=== PATIENT | female | born 1950 | race Native Hawaiian/Other Pacific Islander ===

== ENCOUNTER 2017-01-21 14:08 | Outpatient (CLI) | payer OTHER | END 2017-01-21 19:20 | disposition home or self-care (01) | LOC: LABW 14:08 | DX: M25.50 Pain in unspecified joint (principal); R63.5 Abnormal weight gain | CPT/HCPCS: 36415; 84436; 84439; 84443; 84550; 85651; 86039; 86200; 86430 ==

== ENCOUNTER 2017-05-25 14:42 | Outpatient (CLI) | payer OTHER ==
[2017-05-25 15:05] LABS: PLATELET COUNT 337 K/uL (152-353)
[2017-05-25 16:08] LABS: POTASSIUM 4.2 mmol/L (3.6-5.2); SODIUM 139 mmol/L (136-145)
== END 2017-05-25 15:50 | disposition home or self-care (01) ==
LOC: LABW 14:42
PROVIDERS: Nurse Practitioner Family
DX: E78.4 Other hyperlipidemia (principal); E66.01 Morbid (severe) obesity due to excess calories; E55.9 Vitamin D deficiency, unspecified
CPT/HCPCS: 36415; 80053; 80061; 82306; 84436; 84443; 84550; 85027; 85651; 86039; 86140; 86430

== ENCOUNTER 2017-09-29 11:06 | Outpatient (CLI) | payer OTHER ==
[2017-09-29 11:52] LABS: PLATELET COUNT 309 K/uL (152-353)
[2017-09-29 12:18] LABS: POTASSIUM 4.2 mmol/L (3.6-5.2); SODIUM 137 mmol/L (136-145)
== END 2017-09-29 19:02 | disposition home or self-care (01) ==
LOC: LABW 11:06
PROVIDERS: Nurse Practitioner Family
DX: R68.89 Other general symptoms and signs (principal); E56.8 Deficiency of other vitamins; R53.83 Other fatigue; E55.9 Vitamin D deficiency, unspecified; D50.8 Other iron deficiency anemias
CPT/HCPCS: 36415; 80053; 82306; 82607; 82728; 82746; 83540; 83550; 83918; 84443; 84550; 85027; 85651; 86140

== ENCOUNTER 2017-10-27 09:28 | Outpatient (CLI) | payer OTHER | END 2017-10-27 19:08 | disposition home or self-care (01) | LOC: MAMMO 09:28 | DX: Z12.31 Encounter for screening mammogram for malignant neoplasm of breast (principal); M85.89 Other specified disorders of bone density and structure, multiple sites ==

== ENCOUNTER 2018-03-09 10:29 | Outpatient (CLI) | payer OTHER ==
[2018-03-09 11:18] LABS: PLATELET COUNT 287 K/uL (152-353)
[2018-03-09 11:43] LABS: POTASSIUM 4.3 mmol/L (3.6-5.2)
== END 2018-03-09 21:57 | disposition home or self-care (01) ==
LOC: LABW 10:29
PROVIDERS: Nurse Practitioner Family
DX: M25.562 Pain in left knee (principal); I10 Essential (primary) hypertension; E78.4 Other hyperlipidemia; E56.8 Deficiency of other vitamins; M17.12 Unilateral primary osteoarthritis, left knee
CPT/HCPCS: 36415; 80053; 80061; 82306; 84550; 85027; 85651; 86140

== ENCOUNTER 2018-05-18 11:47 | Outpatient (CLI) | payer OTHER ==
[2018-05-18 12:23] LABS: PLATELET COUNT 318 K/uL (152-353)
[2018-05-18 12:37] LABS: POTASSIUM 4.2 mmol/L (3.6-5.2)
== END 2018-05-18 22:18 | disposition home or self-care (01) ==
LOC: LABW 11:47
PROVIDERS: Nurse Practitioner Family
DX: I10 Essential (primary) hypertension (principal); M10.9 Gout, unspecified
CPT/HCPCS: 36415; 80053; 80061; 82306; 84550; 85027; 85651; 86039; 86140; 86200; 86430

== ENCOUNTER 2020-05-11 10:10 | Outpatient (CLI) | payer OTHER | END 2020-05-11 18:56 | disposition home or self-care (01) | LOC: RAD 10:10 | DX: M85.89 Other specified disorders of bone density and structure, multiple sites (principal) ==

== ENCOUNTER 2020-12-14 13:24 | Outpatient (CLI) | payer OTHER | END 2020-12-14 23:59 | disposition home or self-care (01) | LOC: MAMMO 13:24 | PROVIDERS: ATTEND Nurse Practitioner Family | DX: Z12.31 Encounter for screening mammogram for malignant neoplasm of breast (principal) ==

== ENCOUNTER 2021-01-30 11:04 | Outpatient (CLI) | payer OTHER | END 2021-01-30 21:10 | disposition home or self-care (01) | LOC: RAD 11:04 | PROVIDERS: ATTEND Nurse Practitioner Family | DX: M10.09 Idiopathic gout, multiple sites (principal); M19.041 Primary osteoarthritis, right hand; M19.042 Primary osteoarthritis, left hand; M79.671 Pain in right foot; M85.89 Other specified disorders of bone density and structure, multiple sites ==

== ENCOUNTER 2022-01-06 09:32 | Outpatient (CLI) | payer OTHER | END 2022-01-06 18:57 | disposition home or self-care (01) | LOC: MAMMO 09:32 | PROVIDERS: ATTEND Nurse Practitioner Family | DX: M85.89 Other specified disorders of bone density and structure, multiple sites (principal); Z12.31 Encounter for screening mammogram for malignant neoplasm of breast; M06.4 Inflammatory polyarthropathy; M10.09 Idiopathic gout, multiple sites; M25.571 Pain in right ankle and joints of right foot; M72.2 Plantar fascial fibromatosis; M79.671 Pain in right foot ==

== ENCOUNTER 2022-01-08 15:15 | Outpatient (CLI) | payer OTHER | END 2022-01-08 19:01 | disposition home or self-care (01) | LOC: LAB 15:15 | PROVIDERS: ATTEND Nurse Practitioner Family | DX: R19.5 Other fecal abnormalities (principal) | CPT/HCPCS: 82272 ==